=== PATIENT | male | born 1990 | race Caucasian/White ===

== ENCOUNTER 2016-11-17 16:29 | Emergency (ER) | payer SELFPAY ==
[~2016-11-17] VITALS: Ht 175.3 cm; Wt 61.0 kg
[2016-11-17 16:31] VITALS: BP 144/81; PULSE 61; RESP 15; TEMP 98.1; O2SAT 99
--- NOTE | 2016-11-17 16:39 | PD ---
Physical Exam Time Seen by Provider: 16:38 Narrative 25yo M c/o R knee pain after slipping on wet floor and sliding down 3 steps yesterday. Denies hitting, head, LOC, neck pain, back pain. Patient seen in triage. VS reviewed. Awaiting bed placement. Data Data Last Documented VS Vital Signs Date Time Temp Pulse Resp B/P Pulse Ox O2 Delivery O2 Flow Rate FiO2 11/17/16 16:31 98.1 61 15 144/81 99 MDM Supervised Visit with DAMION: Chanel Macias Nov 17, 2016 16:39
--- NOTE | 2016-11-17 17:29 | PD ---
HPI Chief Complaint: Musculoskeletal Complaint Time Seen by Provider: 17:29 Travel History International Travel<30 days: No Contact w/Intl Traveler<30days: No Traveled to known affect area: No History of Present Illness HPI 25-year-old male presents to emergency Department with right knee pain. Patient states he was at a water park with his young daughter who is caring down some steps when he slipped. Patient states he injured his right knee trying not to drop her or fall on top of her. Patient states it did not swell but he said pain more with extension and bearing weight through the day today. 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 He denies weakness or numbness distal to the knee. He has no other injury. He has not tried taking anything for it. He has no known drug allergies. REPLACED BY [facility] Social History Alcohol Use: Yes Tobacco Use: No Substance Use: No Allergies-Medications (Allergen,Severity, Reaction): Coded Allergies: No Known Allergies (Unverified , 11/17/16) Review of Systems Except as stated in HPI: all other systems reviewed are Neg General / Constitutional: No: Fever Eyes: No: Visual changes HENT: No: Headaches Cardiovascular: No: Chest Pain or Discomfort Respiratory: No: Shortness of Breath Gastrointestinal: No: Abdominal Pain Genitourinary: No: Dysuria Musculoskeletal: Positive: Arthralgias, Limited ROM, Pain Skin: No Rash Neurologic: No: Weakness Psychiatric: No: Depression Endocrine: No: Polydipsia Hematologic/Lymphatic: No: Easy Bruising Physical Exam Narrative GENERAL: Patient appears no acute distress. SKIN: Warm and dry. Normal color. Normal turgor. No abrasions, lacerations, or signs of trauma. HEAD: Atraumatic. Normocephalic. EYES: Pupils equal and round. No scleral icterus. No injection or drainage. ENT: No nasal bleeding or discharge. Mucous membranes pink and moist. Pharynx is normal. NECK: Trachea midline. Supple and nontender. CARDIOVASCULAR: Regular rate and rhythm. RESPIRATORY: No accessory muscle use. Clear to auscultation. Breath sounds equal bilaterally. MUSCULOSKELETAL: Extremities without clubbing, cyanosis, or edema. No obvious deformities. Right knee has no significant effusion. Patient does have increased discomfort with palpation along the lateral joint line and posterior aspect. Patient does not have significant laxity. Negative drawer test. Negative Hilda's test. NEUROLOGICAL: Awake and alert. No obvious cranial nerve deficits. Motor grossly within normal limits. Five out of 5 muscle strength in the arms and legs. Normal speech. PSYCHIATRIC: Appropriate mood and affect; insight and judgment normal. Data Data Last Documented VS Vital Signs Date Time Temp Pulse Resp B/P Pulse Ox O2 Delivery O2 Flow Rate FiO2 11/17/16 16:31 98.1 61 15 144/81 99 Orders Knee, Complete (4vws) (11/17/16 16:40) Ibuprofen (Motrin) (11/17/16 17:45) Splint Or Brace Apply/Monitor (11/17/16 17:34) [facility] Medical Decision Making Medical Screen Exam Complete: Yes Emergency Medical Condition: Yes Differential Diagnosis Right knee sprain. Cartilage tear. Fracture. Narrative Course Patient is medically stable at time of exam. X-ray of the right knee is obtained. X-ray shows no obvious fracture or effusion. Per radiologist. Patient is placed in a knee immobilizer for comfort. Patient is given 800 mg ibuprofen by mouth now. Patient is to continue use the knee immobilizer as needed over the next week as well as ibuprofen 800 mg 3 times daily with food. Patient can take Tylenol as well and use ice frequently as discussed. Patient should follow up if symptoms do not improve or worsen in the next week. Diagnosis Primary Impression: Right knee sprain Qualified Code: S83.91XA - Sprain of right knee, unspecified ligament, initial encounter Referrals: Primary Care Physician Patient Instructions: General Instructions, Knee Immobilizer (ED), Knee Sprain (ED) Additional Instructions: X-ray shows no obvious fracture or effusion. Per radiologist. Patient is placed in a knee immobilizer for comfort. Patient is given 800 mg ibuprofen by mouth now. Patient is to continue use the knee immobilizer as needed over the next week as well as ibuprofen 800 mg 3 times daily with food. Patient can take Tylenol as well and use ice frequently as discussed. Patient should follow up if symptoms do not improve or worsen in the next week. Med/Other Pt SpecificInfo: Prescription(s) given Disposition: 01 DISCHARGE HOME Condition: Stable Karlos Johnson Nov 17, 2016 17:29
[2016-11-17] MEDS ORDERED: IBUP800T23 PO (17:40)
[2016-11-17] MEDS ORDERED: IBUPROFEN 800 MG TAB PO ONE (17:45)
--- NOTE | 2016-11-17 17:49 | RADRPT ---
EXAM DATE/TIME: 11/17/2016 17:08 [facility] COMPARISON: No previous studies available for comparison. INDICATIONS : Right knee pain after falling yesterday. MEDICAL HISTORY : None. SURGICAL HISTORY : None. ENCOUNTER: Initial ACUITY: 2 days PAIN SCORE: 7/10 LOCATION: Right lateral knee. FINDINGS: 4 views right knee. Bone alignment within normal limits. No evidence of fracture.No evidence of join t effusion. No evidence of joint narrowing. CONCLUSION: No evidence of fracture. Juni Owens MD on November 17, 2016 at 17:46 Board Certified Radiologist. This report was verified electronically.
== END 2016-11-17 17:59 | disposition home or self-care (01) ==
LOC: NEPK 16:29
DX: S83.91XA Sprain of unspecified site of right knee, initial encounter (principal); W18.43XA Slipping, tripping and stumbling without falling due to stepping from one level to another, initial encounter; Y93.F2 Activity, caregiving, lifting; Y92.831 Amusement park as the place of occurrence of the external cause
CPT/HCPCS: 73564; 99283; L1830